=== PATIENT | female | born 1995 | race Two or more races ===

== ENCOUNTER 2018-02-18 01:37 | Emergency (ER) | payer OTHER, MEDICAID ==
[~2018-02-18] VITALS: Ht 170.2 cm; Wt 72.6 kg
[2018-02-18 01:40] VITALS: BP 146/82
--- NOTE | 2018-02-18 02:21 | NUR ---
PT GIVEN LIST OF AVAILABLE SHELTERS FOR HOUSING.
== END 2018-02-18 02:22 | disposition home or self-care (01) ==
LOC: ER 01:39
DX: M79.672 Pain in left foot (principal); Z59.0 Homelessness
CPT/HCPCS: 99283; A4606; Z7610